=== PATIENT | male | born 1950 | race Caucasian/White ===

== ENCOUNTER → 2018-04-07 | Outpatient (CLI) | payer OTHER | END | disposition designated cancer center or children's hospital (05) | LOC: AMB 08:30 | PROC: 02PYX3Z Removal of Infusion Device from Great Vessel, External Approach (ICD-10-PCS; principal; 2018-04-07) | DX: Z45.2 Encounter for adjustment and management of vascular access device (principal); N19 Unspecified kidney failure; I87.8 Other specified disorders of veins ==